=== PATIENT | female | born 1985 | race Caucasian/White ===

== ENCOUNTER 2017-03-08 23:39 | Emergency (ER) | payer MEDICAID ==
[~2017-03-08] VITALS: Ht 157.5 cm; Wt 75.0 kg
[~2017-03-08 23:39] MED LIST: PREN-88 PO
[2017-03-09] MEDS ORDERED: ACETAMINOPHEN 325MG TABLET PO ONE (00:30)
[2017-03-09 00:41] VITALS: BP 128/82
== END 2017-03-09 00:42 | disposition home or self-care (01) ==
LOC: ER 03-09 00:41
DX: K08.89 Other specified disorders of teeth and supporting structures (principal); Z3A.22 22 weeks gestation of pregnancy
CPT/HCPCS: 99282